=== PATIENT | female | born 1995 | race Caucasian/White ===

== ENCOUNTER 2020-02-06 16:16 | Emergency (ER) | payer OTHER, SELFPAY ==
[~2020-02-06] VITALS: Ht 154.9 cm; Wt 67.1 kg
[2020-02-06 16:18] VITALS: BP 119/71; Ht 154.9 cm; Wt 67.1 kg
== END 2020-02-06 18:18 | disposition home or self-care (01) ==
LOC: ED 16:16
DX: M79.10 Myalgia, unspecified site (principal); R05 Cough; Z20.828 Contact with and (suspected) exposure to other viral communicable diseases
CPT/HCPCS: U0003